=== PATIENT | female | born 1995 | race African-American/Black ===

== ENCOUNTER 2022-04-22 21:24 | Emergency (ER) | payer SELFPAY ==
[~2022-04-22] VITALS: Ht 170.2 cm; Wt 77.1 kg
--- NOTE | 2022-04-22 21:45 | NUR ---
BIBS FROM HOME FOR ANXIETY ATTACK. PT A/OX4. TOLERATING R/A WELL WITH NO RESP DISTRESS. AMB WITH STEADY GAIT. SAFETY MEASURES IN PLACE.
[2022-04-22] MEDS ORDERED: LORAZEPAM 1 MG TABLET PO ONE (22:30)
[2022-04-22] MEDS ORDERED: LORAZEPAM 1 MG TABLET ONE (23:27)
[2022-04-23] MEDS ORDERED: LORA-259 PO (00:52)
--- NOTE | 2022-04-23 01:04 | NUR ---
Patient discharged to home in stable condition. Written and verbal after care instructions given. Patient verbalizes understanding of instruction. Pt ambulatory with a steady gait
[2022-04-23 01:18] VITALS: BP 121/81
== END 2022-04-23 01:18 | disposition home or self-care (01) ==
LOC: ER 21:37
DX: F41.9 Anxiety disorder, unspecified (principal)
CPT/HCPCS: 82962-TC